=== PATIENT | female | born 1995 | race American Indian/Alaskan Native ===

== ENCOUNTER 2021-08-08 11:11 | Emergency (ER) | payer SELFPAY ==
[2021-08-08 13:30] LABS: Basophils % (Auto) 0.8 % (0.0-1.8); Eosinophils # (Auto) 0.2 K/mm3 (0.0-0.4); Eosinophils % (Auto) 3.5 % (0.0-4.3); Hematocrit 42.9 % (30.3-42.9); Hemoglobin 14.3 gm/dl (10.1-14.3); Lymphocytes # (Auto) 0.8 K/mm3 (1.2-5.4); Mean Corpuscular HGB Conc 33 % (30-34); Mean Corpuscular Volume 88 fl (79-97); Monocytes # (Auto) 0.7 K/mm3 (0.0-0.8); Monocytes % (Auto) 13.2 % (0.0-7.3); Platelet Count 276 K/mm3 (140-440); Red Blood Count 4.88 M/mm3 (3.65-5.03)
[2021-08-08] MEDS ORDERED: diphenhydrAMINE 50 MG/ML VIAL IV ONE (13:38)
[2021-08-08] MEDS ORDERED: KETOROLAC 30 MG/1 ML INJ IV ONE (13:38)
[2021-08-08] MEDS ORDERED: SODIUM CHLORIDE 0.9% 1000 ML 1,000 ML IV ONE (13:38)
--- NOTE | 2021-08-08 13:42 | Emergency Department Report ---
ED General Adult HPI - General Chief complaint: Headache Stated complaint: HEADACHE/STOMACH PAIN/BLEEDING Time Seen by Provider: 08/08/21 11:49 Source: patient Mode of arrival: Ambulatory Limitations: No Limitations - History of Present Illness Initial comments: 26-year-old -[place] female patient presents with complaints of migraine headache x2 days. Patient states she has an history of migraines and normally takes ibuprofen and other OTC medications as needed, however these are not working. She rates her headache as a 9/10 in severity and denies thunderclap onset, vision changes, dizziness, loss of consciousness, numbness/tingling/weak ness in her limbs, or difficulty with speech/ambulation. Patient also complains of intermittent epigastric pain since the onset of her headache along with body aches and nausea. No known vomiting, diarrhea, fever/chills/sweats, neck pain, cough, chest pain, or loss of taste or smell. Patient is not vaccinated against COVID-19. She denies any recent known sick contacts. NKDA per patient. - Related Data Previous Rx's Medication Instructions Recorded Last Taken Type Naproxen 500 mg PO BID PRN #14 tab 08/08/21 Unknown Rx Ondansetron [Zofran Odt] 4 mg PO Q8HR PRN #12 tab.rapdis 08/08/21 Unknown Rx Allergies Allergy/AdvReac Type Severity Reaction Status Date / Time No Known Allergies Allergy Verified 08/08/21 13:18 ED Review of Systems ROS: Stated complaint: HEADACHE/STOMACH PAIN/BLEEDING Other details as noted in HPI Constitutional: malaise. denies: chills, diaphoresis, fever, weakness ENT: denies: throat pain Respiratory: denies: cough, shortness of breath Cardiovascular: denies: chest pain Gastrointestinal: as per HPI Genitourinary: denies: urgency, dysuria, frequency, hematuria Skin: denies: change in color Neurological: headache. denies: weakness, numbness, paresthesias, confusion, abnormal gait, vertigo Hematological/Lymphatic: denies: swollen glands ED Past Medical Hx - Past Medical History Previous Medical History?: No - Surgical History Past Surgical History?: No - Social History Smoking Status: Never Smoker Substance Use Type: None - Medications Home Medications: Home Medications Medication Instructions Recorded Confirmed Last Taken Type Naproxen 500 mg PO BID PRN #14 tab 08/08/21 Unknown Rx Ondansetron [Zofran Odt] 4 mg PO Q8HR PRN #12 tab.rapdis 08/08/21 Unknown Rx ED Physical Exam - General Limitations: No Limitations General appearance: alert, in no apparent distress - Head Head exam: Present: atraumatic, normocephalic - Eye Eye exam: Present: normal appearance, PERRL, EOMI. Absent: scleral icterus - Neck Neck exam: Present: normal inspection - Respiratory Respiratory exam: Present: normal lung sounds bilaterally. Absent: respiratory distress - Cardiovascular Cardiovascular Exam: Present: regular rate, normal rhythm - GI/Abdominal GI/Abdominal exam: Present: soft, normal bowel sounds. Absent: distended, tenderness, guarding, rebound, rigid - Neurological Exam Neurological exam: Present: alert, oriented X3, CN II-XII intact, normal gait. Absent: motor sensory deficit - Expanded Neurological Exam Expanded Cerebellar function: Finger to Nose: Normal, Heel to [place]: Normal, Romberg: Normal Sensory exam: Upper Extremity Light Touch: Normal, Lower Extremity Light Touch: Normal Motor strength exam: RUE: 4, LUE: 4, RLE: 4, LLE: 4 - Psychiatric Psychiatric exam: Present: normal affect, normal mood - Skin Skin exam: Present: warm, dry, intact, normal color. Absent: rash ED Course Vital Signs 08/08/21 11:45 Temperature 98.6 F Pulse Rate 77 Respiratory 18 Rate Blood Pressure 126/77 O2 Sat by Pulse 99 Oximetry ED Medical Decision Making - Lab Data Result diagrams: 08/08/21 12:44 08/08/21 12:44 Lab Results 08/08/21 08/08/21 08/08/21 Range/Units 12:44 12:44 12:44 WBC 5.1 (4.5-11.0) K/mm3 RBC 4.88 (3.65-5.03) M/mm3 Hgb 14.3 (10.1-14.3) gm/dl Hct 42.9 (30.3-42.9) % MCV 88 (79-97) fl MCH 29 (28-32) pg MCHC 33 (30-34) % RDW 13.0 L (13.2-15.2) % Plt Count 276 (140-440) K/mm3 Lymph % (Auto) 16.0 (13.4-35.0) % Sevier % (Auto) 13.2 H (0.0-7.3) % Eos % (Auto) 3.5 (0.0-4.3) % Baso % (Auto) 0.8 (0.0-1.8) % Lymph # (Auto) 0.8 L (1.2-5.4) K/mm3 Sevier # (Auto) 0.7 (0.0-0.8) K/mm3 Eos # (Auto) 0.2 (0.0-0.4) K/mm3 Baso # (Auto) 0.0 (0.0-0.1) K/mm3 Seg Neutrophils % 66.5 (40.0-70.0) % Seg Neutrophils # 3.4 (1.8-7.7) K/mm3 Sodium 140 (137-145) mmol/L Potassium 3.8 (3.6-5.0) mmol/L Chloride 102.6 (98-107) mmol/L Carbon Dioxide 22 (22-30) mmol/L Anion Gap 19 mmol/L BUN 8 (7-17) mg/dL Creatinine 0.7 (0.6-1.2) mg/dL Estimated GFR > 60 ml/min BUN/Creatinine Ratio 11 % Glucose 92 (65-100) mg/dL Calcium 9.1 (8.4-10.2) mg/dL Lipase 27 (13-60) units/L HCG, Qual Negative (Negative) Influenza A (Rapid) (Negative) Influenza B (Rapid) (Negative) 08/08/21 Range/Units Unknown WBC (4.5-11.0) K/mm3 RBC (3.65-5.03) M/mm3 Hgb (10.1-14.3) gm/dl Hct (30.3-42.9) % MCV (79-97) fl MCH (28-32) pg MCHC (30-34) % RDW (13.2-15.2) % Plt Count (140-440) K/mm3 Lymph % (Auto) (13.4-35.0) % Sevier % (Auto) (0.0-7.3) % Eos % (Auto) (0.0-4.3) % Baso % (Auto) (0.0-1.8) % Lymph # (Auto) (1.2-5.4) K/mm3 Sevier # (Auto) (0.0-0.8) K/mm3 Eos # (Auto) (0.0-0.4) K/mm3 Baso # (Auto) (0.0-0.1) K/mm3 Seg Neutrophils % (40.0-70.0) % Seg Neutrophils # (1.8-7.7) K/mm3 Sodium (137-145) mmol/L Potassium (3.6-5.0) mmol/L Chloride (98-107) mmol/L Carbon Dioxide (22-30) mmol/L Anion Gap mmol/L BUN (7-17) mg/dL Creatinine (0.6-1.2) mg/dL Estimated GFR ml/min BUN/Creatinine Ratio % Glucose (65-100) mg/dL Calcium (8.4-10.2) mg/dL Lipase (13-60) units/L HCG, Qual (Negative) Influenza A (Rapid) Negative (Negative) Influenza B (Rapid) Negative (Negative) - Radiology Data Radiology results: report reviewed - Medical Decision Making 26-year-old -[place] female patient presents with complaints of migraine headache x2 days. Patient states she has an history of migraines and normally takes ibuprofen and other OTC medications as needed, however these are not working. She rates her headache as a 9/10 in severity and denies thunderclap onset, vision changes, dizziness, loss of consciousness, numbness/tingling/weakness in her limbs, or difficulty with speech/ambulation. Patient also complains of intermittent epigastric pain since the onset of her headache along with body aches and nausea. No known vomiting, diarrhea, fever/chills/sweats, neck pain, cough, chest pain, or loss of taste or smell. Patient is not vaccinated against COVID-19. She denies any recent known sick c ontacts. NKDA per patient. Labs are normal. Rapid flu is negative. Patient given migraine cocktail and states her headache has resolved. Her vitals are normal she is well-appearing and stable for discharge home. I do recommend patient gets COVID-19 testing within the next 1 to 2 days and self quarantine until her results are back. Also recommend patient follows up with her PCP. Strict return precautions were discussed in detail with patient who verbalizes understanding Critical care attestation.: If time is entered above; I have spent that time in minutes in the direct care of this critically ill patient, excluding procedure time. ED Disposition Clinical Impression: Flu-like symptoms, Migraine Disposition: 01 HOME / SELF CARE / HOMELESS Is pt being admited?: No Condition: Stable Instructions: Migraine Headache, [id number] Prescriptions: Naproxen 500 mg PO BID PRN #14 tab PRN Reason: pain Ondansetron [Zofran Odt] 4 mg PO Q8HR PRN #12 tab.rapdis PRN Reason: Nausea Referrals: ABIMBOLA EPPS MD [Primary Care Provider] - 3-5 Days Forms: Work/School Release Form(ED)
[2021-08-08] MEDS: METOCLOPRAMIDE 10 MG/2 ML INJ IV ONE (14:11)
[2021-08-08 14:15] LABS: Blood Urea Nitrogen 8 mg/dL (7-17); Calcium 9.1 mg/dL (8.4-10.2); Hemolysis Index 7
[2021-08-08 14:16] LABS: BUN/Creatinine Ratio 11
[2021-08-08 15:48] VITALS: BP 125/75
== END 2021-08-08 15:30 | disposition home or self-care (01) ==
LOC: ED 11:11
DX: G43.909 Migraine, unspecified, not intractable, without status migrainosus (principal)
CPT/HCPCS: 36415; 80048; 83690; 84703; 85025; 87400; 96361; 96374; 96375; 99283; J1200; J1885; J2765; J7030; Q0162